=== PATIENT | male | born 1990 | race Caucasian/White ===

== ENCOUNTER 2022-02-25 12:02 | Observation (INO) | payer SELFPAY ==
[~2022-02-25 12:02] MED LIST: Iopamidol-370 76% 500 ML 1 ML ONE
[2022-02-25] MEDS ORDERED: Ondansetron PF 4 MG/2 ML Vial ONE (12:29)
[2022-02-25] MEDS ORDERED: Morphine 4 MG/ML VIAL ONE ×2 (12:29→13:41)
[2022-02-25 12:39] LABS: #Basophils 0.1 thou/uL (0.0-0.2); #Lymphocytes 1.2 thou/uL (1.20-3.40); #Monocytes 0.6 thou/uL (0.11-0.59); #Neutrophils 14.8 thou/uL (1.40-6.50); %Basophils 0.3 % (0.0-1.0); %Eosinophils 0.2 % (0.0-10.0); %Lymphocytes 7.1 % (21.0-51.0); %Monocytes 3.5 % (0.0-10.0); %Neutrophils 88.9 % (42.0-75.0); Hemoglobin 17.4 g/dL (14.0-18.0); Mean Corpuscular HGB CONC 35.7 g/dL (32.0-36.0); Mean Corpuscular Hemoglobin 32.9 pg (27.0-31.0); Mean Corpuscular Volume 92.2 fl (78.0-98.0); Mean Platelet Volume 8.7 fL (7.4-10.4); Platelet Count 185 10x3/uL (130-400); RBC Distribution Width 11.2 % (11.5-14.5); Red Blood Cell (RBC) Count 5.31 mill/uL (4.70-6.10); White Blood Cell (WBC) Count 16.7 10x3/uL (4.8-10.8)
[2022-02-25 12:52] LABS: ALT (SGPT) 74 U/L (8-55); AST (SGOT) 47 U/L (5-34); Albumin 4.6 g/dL (3.5-5.0); Alkaline Phosphatase 100 U/L (40-110); Anion Gap 14 mmol/L (10-20); BUN (Urea Nitrogen) 13 mg/dL (8.9-20.6); Calc. Creatinine Clearance 0 mL/min (70-130); Calcium 9.2 mg/dL (7.8-10.44); Carbon Dioxide 24 mmol/L (22-29); Chloride 103 mmol/L (98-107); Estimated GFR 89; Globulin 3.4 g/dL (2.4-3.5); Glucose 133 mg/dL (70-105); Lipase 25 U/L (8-78); Potassium 3.8 mmol/L (3.5-5.1); Sodium 137 mmol/L (136-145)
[2022-02-25 12:53] LABS: PTT 27.7 sec (22.9-36.1); Prothrombin Time 13.8 sec (12.0-14.7)
[2022-02-25] MEDS ORDERED: Ketorolac Tromethamine 30 MG/ML VIAL ONE (13:41)
[2022-02-25 14:32] LABS: Phosphorus 2.6 mg/dL (2.3-4.7)
[2022-02-25] MEDS ORDERED: Dextrose 50% Abboject 50 ML SYRINGE SLOW IVP PRN (14:39)
[2022-02-25] MEDS ORDERED: hydrALAZINE 20 MG/ML VIAL SLOW IVP PRN (14:39)
[2022-02-25] MEDS ORDERED: Dextrose 5% in Water 1,000 ML IV PRN (14:39)
[2022-02-25] MEDS ORDERED: Ipratropium/Albuterol 3 ML NEB NEB PRN (14:39)
[2022-02-25] MEDS ORDERED: Ondansetron PF 4 MG/2 ML Vial IVP PRN (14:39)
[2022-02-25] MEDS ORDERED: Cyclobenzaprine 10 MG TAB PO PRN (14:41)
[2022-02-25] MEDS ORDERED: Potassium Phosphate 15 MMOL in Sodium Chloride 0.9% 250 ML 250 ML IVPB SCH (14:45)
[2022-02-25] MEDS ORDERED: Sodium Chloride 0.9% 1,000 ML IV SCH (14:45)
[2022-02-25] MEDS: Gabapentin 300 MG CAP PO SCH ×2 (15:43→20:08)
[2022-02-25] MEDS: Acetaminophen 500 MG TAB PO SCH ×2 (15:43→20:13)
[2022-02-25] MEDS: Morphine 4 MG/ML VIAL SLOW IVP PRN (15:44)
[2022-02-25 16:19] VITALS: BMI 26.4
[2022-02-25] MEDS: Ketorolac Tromethamine 30 MG/ML VIAL IVP SCH (17:56)
[2022-02-25] MEDS: Ipratropium/Albuterol 3 ML NEB NEB SCH ×2 (17:57→18:18)
[2022-02-25] MEDS: traMADol HCl 50 MG TAB PO SCH (20:08)
[2022-02-25] MEDS: Senokot S 8.6-50 MG TAB PO SCH (20:09)
[2022-02-25] MEDS: Famotidine 20 MG TAB PO SCH (20:09)
[2022-02-25] MEDS ORDERED: Acetaminophen/Codeine 30-300mg Tablet PO PRN (22:09)
[2022-02-26] MEDS: Acetaminophen 325 MG TAB PO SCH ×3 (00:04→09:37)
[2022-02-26 01:17] VITALS: TEMP 98.1
[2022-02-26] MEDS: traMADol HCl 50 MG TAB PO SCH (02:16)
[2022-02-26] MEDS: Morphine 4 MG/ML VIAL SLOW IVP PRN ×3 (02:19→11:21)
[2022-02-26] MEDS: Ketorolac Tromethamine 30 MG/ML VIAL IVP SCH ×2 (05:25)
[2022-02-26 05:59] LABS: #Eosinphils 0.2 thou/uL (0.0-0.7); #Lymphocytes 1.9 thou/uL (1.20-3.40); #Monocytes 0.5 thou/uL (0.11-0.59); #Neutrophils 4.2 thou/uL (1.40-6.50); %Basophils 0.3 % (0.0-1.0); %Eosinophils 2.8 % (0.0-10.0); %Monocytes 7.2 % (0.0-10.0); %Neutrophils 61.7 % (42.0-75.0); Hemoglobin 14.3 g/dL (14.0-18.0); Mean Corpuscular HGB CONC 34.8 g/dL (32.0-36.0); Mean Corpuscular Hemoglobin 33.1 pg (27.0-31.0); Mean Corpuscular Volume 94.9 fl (78.0-98.0); Mean Platelet Volume 8.9 fL (7.4-10.4); Platelet Count 151 10x3/uL (130-400); RBC Distribution Width 11.2 % (11.5-14.5); Red Blood Cell (RBC) Count 4.34 mill/uL (4.70-6.10); White Blood Cell (WBC) Count 6.8 10x3/uL (4.8-10.8)
[2022-02-26 06:27] LABS: ALT (SGPT) 61 U/L (8-55); AST (SGOT) 47 U/L (5-34); Albumin 3.6 g/dL (3.5-5.0); Alkaline Phosphatase 78 U/L (40-110); Anion Gap 10 mmol/L (10-20); BUN (Urea Nitrogen) 12 mg/dL (8.9-20.6); Bilirubin, Total 0.6 mg/dL (0.2-1.2); CK (CPK) 354 U/L (30-200); Calc. Creatinine Clearance 130 mL/min (70-130); Calcium 8.5 mg/dL (7.8-10.44); Carbon Dioxide 24 mmol/L (22-29); Chloride 109 mmol/L (98-107); Estimated GFR 102; Globulin 2.4 g/dL (2.4-3.5); Glucose 147 mg/dL (70-105); Magnesium 2.1 mg/dL (1.6-2.6); Phosphorus 3.7 mg/dL (2.3-4.7); Potassium 3.8 mmol/L (3.5-5.1); Sodium 139 mmol/L (136-145)
[2022-02-26] MEDS ORDERED: Ipratropium/Albuterol 3 ML NEB NEB SCH ×2 (06:45→12:30)
[2022-02-26] MEDS ORDERED: Acetaminophen/Codeine 30-300mg Tablet PO SCH ×2 (07:45→08:00)
[2022-02-26] MEDS: Famotidine 20 MG TAB PO SCH (08:14)
[2022-02-26] MEDS: Gabapentin 300 MG CAP PO SCH (08:14)
[2022-02-26] MEDS: Senokot S 8.6-50 MG TAB PO SCH (08:15)
[2022-02-26] MEDS ORDERED: Ibuprofen 200 MG TAB PO PRN (08:49)
[2022-02-26] MEDS ORDERED: Polyethylene Glycol 3350 17 GM Packet PO SCH (09:00)
[2022-02-26 12:26] VITALS: BP 145/95
== END 2022-02-26 12:30 | disposition home or self-care (01) ==
LOC: ERS 12:02 → SURG A 15:33
PROVIDERS: ADMIT Surgery; ATTEND Surgery
DX: S28.0XXA Crushed chest, initial encounter (principal); S27.892A Contusion of other specified intrathoracic organs, initial encounter; S22.21XA Fracture of manubrium, initial encounter for closed fracture; S22.32XA Fracture of one rib, left side, initial encounter for closed fracture; G89.11 Acute pain due to trauma; F17.210 Nicotine dependence, cigarettes, uncomplicated; W55.19XA Other contact with horse, initial encounter; Y93.52 Activity, horseback riding
CPT/HCPCS: 36415; 70498; 71045; 71260; 72125; 74177; 80053; 82550; 83690; 83735; 84100; 84484; 85025; 85610; 85730; 93005; 94640; 94760; 96374; 96375; 96376; G0378; J1885; J2270; J2405; J7050; J7620; Q9967

== ENCOUNTER 2022-03-12 11:54 | Outpatient (CLI) | payer OTHER | END 2022-03-12 11:55 | disposition home or self-care (01) | LOC: BICRAD 11:54 | PROVIDERS: ATTEND Family Medicine | DX: W19.XXXA Unspecified fall, initial encounter (principal); S22.21XD Fracture of manubrium, subsequent encounter for fracture with routine healing; J98.11 Atelectasis | CPT/HCPCS: 71046 ==